=== PATIENT | male | born 1980 | race Caucasian/White ===

== ENCOUNTER 2017-01-31 07:59 | Emergency (ER) | payer MEDICAID ==
[2017-01-31 08:06] VITALS: BP 131/87
== END 2017-01-31 09:58 | disposition home or self-care (01) ==
LOC: ED 07:59
DX: S83.92XA Sprain of unspecified site of left knee, initial encounter (principal); W22.8XXA Striking against or struck by other objects, initial encounter; Y93.89 Activity, other specified; Y92.89 Other specified places as the place of occurrence of the external cause; Y99.8 Other external cause status

== ENCOUNTER 2017-09-22 18:55 | Emergency (ER) | payer MEDICAID ==
[2017-09-23 02:12] VITALS: BP 110/67
== END 2017-09-23 02:12 | disposition home or self-care (01) ==
LOC: ED 18:55
DX: H11.31 Conjunctival hemorrhage, right eye (principal); G44.209 Tension-type headache, unspecified, not intractable
CPT/HCPCS: J1885; V2632

== ENCOUNTER 2019-08-20 21:56 | Emergency (ER) | payer MEDICAID ==
[~2019-08-20] VITALS: Ht 165.1 cm; Wt 95.3 kg
[2019-08-20 22:16] VITALS: Ht 165.1 cm; Wt 95.3 kg
[2019-08-21 00:10] VITALS: BP 130/88
== END 2019-08-21 00:10 | disposition home or self-care (01) ==
LOC: ED 21:56
DX: B02.9 Zoster without complications (principal); Z90.49 Acquired absence of other specified parts of digestive tract; Z98.890 Other specified postprocedural states

== ENCOUNTER 2020-08-10 16:02 | Emergency (ER) | payer MEDICAID, SELFPAY ==
[~2020-08-10] VITALS: Ht 157.5 cm; Wt 98.0 kg
[2020-08-10 16:05] VITALS: Ht 157.5 cm; Wt 98.0 kg
[2020-08-10 16:48] VITALS: BP 118/80
== END 2020-08-10 16:48 | disposition home or self-care (01) ==
LOC: ED 16:02
DX: M79.10 Myalgia, unspecified site (principal); J02.9 Acute pharyngitis, unspecified; R51.9 Headache, unspecified; E78.00 Pure hypercholesterolemia, unspecified; Z20.828 Contact with and (suspected) exposure to other viral communicable diseases; Z90.49 Acquired absence of other specified parts of digestive tract
CPT/HCPCS: U0003